=== PATIENT | male | born 1960 | race Caucasian/White ===

== ENCOUNTER 2021-05-18 13:04 | Inpatient (IN) | payer OTHER, SELFPAY ==
--- NOTE | 2021-05-18 | ECG_ITS ---
Test Reason : MEDICAL CLEARANCE Blood Pressure : / mmHG Vent. Rate : 088 BPM Atrial Rate : 088 BPM P-R Int : 180 ms QRS Dur : 134 ms QT Int : 406 ms P-R-T Axes : 038 123 013 degrees QTc Int : 491 ms Normal sinus rhythm Right bundle branch block Nonspecific T wave abnormality Abnormal ECG No previous ECGs available Referred By: Sal Barton Electronically Signed By:MARCEL AVILEZ MD
--- NOTE | 2021-05-18 13:16 | ED.PSYCH ---
HPI - Psych General Chief Complaint: Psychiatric Symptoms Stated Complaint: PSYCH EVAL,SI,V&D FROM DETOXING Time Seen by Provider: 05/18/21 13:16 Source: patient and EMS Mode of arrival: EMS Limitations: no limitations History of Present Illness MD complaint: suicidal ideation, feels depressed and substance abuse Onset (ago): week(s) Duration: getting worse History of same: Yes Relieving factors: none Exacerbating factors: none Context: other (heavy ETOH drinking) Associated psychiatric symptoms: depression Associated symptoms: other (has had loose stools) Treatments prior to arrival: none Related Data Home Medications Medication Instructions Recorded Confirmed hydroxyzine pamoate 50 mg capsule 250 mg PO BEDTIME 05/18/21 05/18/21 lisinopril 20 mg tablet 1 tab PO DAILY 05/18/21 05/18/21 melatonin 10 mg tablet 10 mg PO BEDTIME PRN 05/18/21 05/18/21 multivitamin 1 tab PO DAILY 05/18/21 05/18/21 Allergies Allergy/AdvReac Type Severity Reaction Status Date / Time No Known Allergies Allergy Unverified 04/16/20 14:43 Review of Systems Review of Systems: Constitutional : No Fever, No Chills ENT/Mouth : No Ear Pain, No Nasal Congestion, No sore throat Eyes: No Eye Pain, No Swelling, No Redness Cardiovascular : No Chest Pain, No SOB Respiratory : No Cough, No Sputum, No Dyspnea Gastrointestinal : No Nausea, No Vomiting, pos Diarrhea, No Hematochezia, No Melena Genitourinary : No Dysuria, No Urinary Frequency, No Hematuria Musculoskeletal : No Myalgias Skin : No Skin Lesions, No rash Neuro : No Weakness, No Numbness, No Paresthesias, No Dizziness, No Headache Psych : positive Anxiety, positive Depression, positive SI no HI Heme/Lymph: No Lymphadenopathy Endocrine : No Polyuria, No Polydipsia All other systems reviewed and are negative [facility] Past Medical History Attestation statement: The following information was validated with the patient. Medical History (Updated 05/18/21 @ 15:24 by Olimpia Sylvester DO) Alcoholism Depression Social History Social History (Updated 05/18/21 @ 13:50 by Olimpia Sylvester DO) Alcohol intake: current Patient Tobacco Use Status: Tobacco use Unknown Advance Directives: No Advance Directives Information Provided: Yes Physical Exam Vital Signs: Vital Signs: Last Vital Signs Temp 98.2 F 05/18/21 13:43 Pulse 91 05/18/21 14:57 Resp 16 05/18/21 13:43 BP 109/72 05/18/21 14:57 Pulse Ox 97 05/18/21 14:57 Body Mass Index 27.6 Appearance: Alert. Oriented X3. No acute distress. Eyes: Pupils equal, round and reactive to light. ENT: Pharynx normal. Neck: Normal inspection. Neck supple. CVS: Normal heart rate and rhythm. Pulses normal. Respiratory: No respiratory distress. Breath sounds normal. Abdomen: Soft and nontender. Skin: Skin warm and dry. Normal skin color. Normal skin turgor. Extremities: No lower extremity edema. No calf ttp Neuro: Oriented X 3. No motor deficit. No sensory deficit. CN 2-12 intact Psych: pos SI, calm and cooperative Course Course Course Narrative: belly is benign doubt pancreatitis Patient placed in physician observation at 322pm. The indication for observation is that the patient needs more time to be assessed by CARE team. At this time the patient is well developed well nourished, lungs clear, CV RRR, abd nontender, neuro is intact. signed out pending CARE team reccs MDM - Psych MDM Narrative Medical decision making narrative: 61 yo male with recent ETOH abuse and now with depression and SI at this time will need labs, PO supportive medications, his abdominal exam is benign - BHn consult Lab Data Result diagrams: 05/18/21 14:05 05/18/21 14:05 Labs: Lab Results 05/18/21 05/18/21 05/18/21 Range/Units 13:33 14:05 14:05 WBC 7.0 (4.8-10.8) X10*3/uL RBC 4.11 L (4.60-5.80) X10*6/uL Hgb 13.0 L (14.0-18.0) g/dl Hct 36.9 L (42-52) % MCV 89.8 (80-98) fL MCH 31.6 (27.0-33.0) pg MCHC 35.2 (31.0-36.0) g/dl RDW 13.2 (11.0-16.0) % Plt Count 151 L (160-400) X10*3/uL MPV 10.0 (9.4-12.4) fL Immature Gran % (Auto) 0.6 H (0.0-0.4) % Neut % (Auto) 57.6 (45-73) % Lymph % (Auto) 24.2 (20-40) % [place] % (Auto) 15.4 H (2-11) % Eos % (Auto) 1.8 (0-4) % Baso % (Auto) 0.4 (0-2) % Lymph # (Auto) 1.7 (1.2-4.9) X10*3/uL [place] # (Auto) 1.1 (0.1-1.2) X10*3/uL Eos # (Auto) 0.1 (0.0-0.4) X10*3/uL Baso # (Auto) 0.0 (0.0-0.2) X10*3/uL Abs Immat Gran (auto) 0.04 H (0.00-0.03) X10*3/uL Absolute Neuts (auto) 4.1 (2.0-8.3) X10*3/uL Absolute Nucleated RBC 0.000 (0.0-0.012) X10*3/uL Nucleated RBC % (auto) 0.0 (0.0-0.2) /100WBC Smear Tech's Comments Not Reportable Sodium 137 (135-145) mmol/L Potassium 3.4 (3.3-5.1) mmol/L Chloride 98 (96-108) mmol/L Carbon Dioxide 27 (22-29) mmol/L Anion Gap 15 (12-20) BUN 12 (9-16) mg/dL Creatinine 0.94 (0.5-1.4) mg/dL Estim Creat Clear Calc 90.3 Estimated GFR > 60 Random Glucose 152 H (60-115) mg/dL Calcium 9.4 (8.4-10.2) mg/dL Magnesium 1.5 L (1.6-2.6) mg/dL Total Bilirubin 1.2 H (0.0-1.0) mg/dL Direct Bilirubin 0.7 H (0.0-0.5) mg/dL AST 55 H (5-37) U/L ALT 37 (0-40) U/L Alkaline Phosphatase 85 (39-117) U/L Total Protein 7.0 (6.5-8.0) g/dL Albumin 4.2 (3.5-5.0) g/dL Lipase 128 H (8-78) U/L Urine Opiates Screen Not Detected (Not Detect) Urine Fentanyl Screen Not Detected (Not Detect) Ur Barbiturates Screen Not Detected (Not Detect) Ur Phencyclidine Scrn Not Detected (Not Detect) Ur Amphetamines Screen Not Detected (Not Detect) U Benzodiazepines Scrn Not Detected (Not Detect) Urine Cocaine Screen Not Detected (Not Detect) U Marijuana (THC) Screen POSITIVE H (Not Detect) Ethyl Alcohol mg/dL COVID-19 ([facility]) (Negative) COVID-19 Clin Com 05/18/21 05/18/21 Range/Units 14:05 14:05 WBC (4.8-10.8) X10*3/uL RBC (4.60-5.80) X10*6/uL Hgb (14.0-18.0) g/dl Hct (42-52) % MCV (80-98) fL MCH (27.0-33.0) pg MCHC (31.0-36.0) g/dl RDW (11.0-16.0) % Plt Count (160-400) X10*3/uL MPV (9.4-12.4) fL Immature Gran % (Auto) (0.0-0.4) % Neut % (Auto) (45-73) % Lymph % (Auto) (20-40) % [place] % (Auto) (2-11) % Eos % (Auto) (0-4) % Baso % (Auto) (0-2) % Lymph # (Auto) (1.2-4.9) X10*3/uL [place] # (Auto) (0.1-1.2) X10*3/uL Eos # (Auto) (0.0-0.4) X10*3/uL Baso # (Auto) (0.0-0.2) X10*3/uL Abs Immat Gran (auto) (0.00-0.03) X10*3/uL Absolute Neuts (auto) (2.0-8.3) X10*3/uL Absolute Nucleated RBC (0.0-0.012) X10*3/uL Nucleated RBC % (auto) (0.0-0.2) /100WBC Smear Tech's Comments Sodium (135-145) mmol/L Potassium (3.3-5.1) mmol/L Chloride (96-108) mmol/L Carbon Dioxide (22-29) mmol/L Anion Gap (12-20) BUN (9-16) mg/dL Creatinine (0.5-1.4) mg/dL Estim Creat Clear Calc Estimated GFR Random Glucose (60-115) mg/dL Calcium (8.4-10.2) mg/dL Magnesium (1.6-2.6) mg/dL Total Bilirubin (0.0-1.0) mg/dL Direct Bilirubin (0.0-0.5) mg/dL AST (5-37) U/L ALT (0-40) U/L Alkaline Phosphatase (39-117) U/L Total Protein (6.5-8.0) g/dL Albumin (3.5-5.0) g/dL Lipase (8-78) U/L Urine Opiates Screen (Not Detect) Urine Fentanyl Screen (Not Detect) Ur Barbiturates Screen (Not Detect) Ur Phencyclidine Scrn (Not Detect) Ur Amphetamines Screen (Not Detect) U Benzodiazepines Scrn (Not Detect) Urine Cocaine Screen (Not Detect) U Marijuana (THC) Screen (Not Detect) Ethyl Alcohol < 10 mg/dL COVID-19 ([facility]) Negative (Negative) COVID-19 Clin Com See Note Discharge Plan Discharge Clinical Impression: Alcohol abuse, Hypomagnesemia Prescriptions: No Action multivitamin Tablet 1 tab PO DAILY RF: 0 lisinopril 20 mg tablet 1 tab PO DAILY RF: 0 hydroxyzine pamoate 50 mg capsule 250 mg PO BEDTIME RF: 0 melatonin 10 mg Tablet 10 mg PO BEDTIME PRN (Reason: Insomnia) RF: 0
[2021-05-18 13:43] VITALS: BP 137/90; PULSE 118; RESP 16; TEMP 36.8; O2SAT 97; BMI 27.6
[2021-05-18] MEDS: LORazepam 1 MG TABLET 2 MG PO (13:53)
[2021-05-18] MEDS: Loperamide HCl 2 MG CAPSULE PO (13:57)
--- NOTE | 2021-05-18 14:00 | PHA.MEDREC ---
Pharmacy Consult ? Medication Reconciliation Pharmacy has completed the medication reconciliation. Patient has been taking 5 tablet of vistiral every night for sleep. He beleives it does not work because his mind continue to run. He is hoping to have some medication adjusted for sleep. Leigh Diehl, PharmD
[2021-05-18 14:12] LABS: MANUAL DIFF FLAG SCAN; PLT CLUMP 1; Red Cell Distribution Width 13.2 % (11.0-16.0); SCAN SMEAR FLAG 1
[2021-05-18 14:14] LABS: Amphetamine Screen Urine Not Detected (Not Detect); Barbiturates, Urine Not Detected (Not Detect); Benzodiazepines Screen Urine Not Detected (Not Detect); Cannabinoid Screen Urine POSITIVE (Not Detect); Cocaine Screen Urine Not Detected (Not Detect); Fentanyl, urine Not Detected (Not Detect); Opiate Screen Urine Not Detected (Not Detect); Phencyclidine Screen Urine Not Detected (Not Detect)
[2021-05-18 14:14] LABS: Basophils Percent Auto 0.4 % (0-2); Eosinophils Absolute Auto 0.1 X10*3/uL (0.0-0.4); Eosinophils Percent Auto 1.8 % (0-4); Hematocrit 36.9 % (42-52); Imm Gran Abs Auto 0.04 X10*3/uL (0.00-0.03); Imm Gran Pct Auto 0.6 % (0.0-0.4); Lymphocytes Absolute Auto 1.7 X10*3/uL (1.2-4.9); Lymphocytes Percent Auto 24.2 % (20-40); Mean Corpuscular HGB Conc 35.2 g/dl (31.0-36.0); Mean Corpuscular Hemoglobin 31.6 pg (27.0-33.0); Mean Corpuscular Volume 89.8 fL (80-98); Monocytes Absolute Auto 1.1 X10*3/uL (0.1-1.2); Monocytes Percent Auto 15.4 % (2-11); Neutrophils Absolute Auto 4.1 X10*3/uL (2.0-8.3); Neutrophils Percent Auto 57.6 % (45-73); Platelet Count 151 X10*3/uL (160-400); Red Blood Count 4.11 X10*6/uL (4.60-5.80)
[2021-05-18 14:25] LABS: Ethanol < 10 mg/dL
[2021-05-18 14:28] LABS: Alanine Aminotransferase 37 U/L (0-40); Albumin Level 4.2 g/dL (3.5-5.0); Alkaline Phosphatase 85 U/L (39-117); Anion Gap 15 (12-20); Aspartate Amino Transferase 55 U/L (5-37); Bilirubin Direct 0.7 mg/dL (0.0-0.5); Bilirubin Total 1.2 mg/dL (0.0-1.0); Blood Urea Nitrogen 12 mg/dL (9-16); Calcium 9.4 mg/dL (8.4-10.2); Carbon Dioxide 27 mmol/L (22-29); Chloride 98 mmol/L (96-108); Creatinine Clr Calc Pharmacy 90.3; Estimated Glomerular Filt Rate > 60; Glucose Random 152 mg/dL (60-115); Lipase 128 U/L (8-78); Magnesium 1.5 mg/dL (1.6-2.6); Potassium 3.4 mmol/L (3.3-5.1); Sodium 137 mmol/L (135-145)
[2021-05-18 14:36] LABS: COVID-19 Test Negative (Negative)
[2021-05-18] MEDS: Magnesium Oxide 400 MG TABLET PO (14:48)
[2021-05-18 14:57] VITALS: BP 109/72; PULSE 91; O2SAT 97
[2021-05-18] MEDS: LORazepam 1 MG TABLET PO (16:16)
--- NOTE | 2021-05-18 17:22 | PM.PSYCN ---
History of Present Illness Date of Service: 05/18/21 Chief Complaint: PSYCH EVAL,SI,V&D FROM DETOXING Reason for Consult: disposition Requesting physician: Olimpia Sylvester Discussed with referring provider: Yes Sources of Information: patient interviewed, chart reviewed and crisis/core team assessment reviewed HPI Narrative: Pt is a 61 y.o. Male who carries a dx of MDD, recurrent and alcohol use disorder in early remission. He reports he has abstained from drinking x 1 week but had relapsed on alcohol around his birthday. Says he left his sober living residence due to feeling demoralized by the conditions, ?four people in a small room,? no place to store his things, not well maintained, ?way below expectations.? Had no where to go, decided to ?drink my birthday away.? He has been staying in hotels and was drinking throughout the day. Says he would ?always make sure there was a bottle first thing in the morning? due to feeling ?extremely depressed? and would consume 3-4 vodka and grapefruit juice drinks ?until i started to feel better.? Then at night he would ?drink and sleep and drink and sleep, and just dose off.? During this recent relapse, he was not caring for himself, said he ate one pizza and drank some broth but not much else. Currently denies withdrawal sx, had self detoxed and said he was drinking ?a lot of gatorade.? Sleep is poor, feels restless, ?I cant sleep, my mind is all over the place.? Sleep has been worse x one month, tries to nap in the day but is unable to due to anxiety, has been sitting in his hotel room drinking and watching tv. Says he feels ?tired? and has ?no energy.? He endorses sx of hopeless, ?I had a really good deal and I lost it,? perseverating on his losses and says watching certain commercials will ?bring back certain things, it eats me up.? 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 Drinking behavior has been worsening x 4 yrs. Last sought help in October 2020 and was admitted to IOP, PHP, and EATs programs. Has been to AA. No hx of IPLOC or crisis evals for psych sx. Currently endorses SI, ?its where my mind wanders, it would be so much easier if I just checked out,? has never had these thoughts before and he is ?scared,? does not feels safe going back home. Has plan to ?burry a bottle of sleeping pills and [employer].? Has financial stress. Past Psychiatric History: Past med trials: -sertraline, naltrexone (says it helped) Medical Evaluation Reviewed: Yes [facility] Medical History (Updated 05/18/21 @ 17:25 by Linda Gar NP) Alcoholism Depression Social History: SH: -Was at sober living facility but left before day weekend, then was staying in hotels. Most recently has been staying at his parent?s house but currently homeless. Diagnostics Vital Signs (24Hr): Vital Signs - 24 hr 05/18/21 13:43 05/18/21 14:57 Temperature 98.2 F Pulse Rate 118 H 91 Respiratory Rate 16 Blood Pressure 137/90 H 109/72 Pulse Oximetry 97 97 Body Mass Index 27.6 Labs Results: 05/18/21 14:05 05/18/21 14:05 Labs: Laboratory Results - last 48 hr 05/18/21 05/18/21 05/18/21 13:33 14:05 14:05 WBC 7.0 RBC 4.11 L Hgb 13.0 L Hct 36.9 L MCV 89.8 MCH 31.6 MCHC 35.2 RDW 13.2 Plt Count 151 L MPV 10.0 Immature Gran % (Auto) 0.6 H Neut % (Auto) 57.6 Lymph % (Auto) 24.2 [place] % (Auto) 15.4 H Eos % (Auto) 1.8 Baso % (Auto) 0.4 Lymph # (Auto) 1.7 [place] # (Auto) 1.1 Eos # (Auto) 0.1 Baso # (Auto) 0.0 Abs Immat Gran (auto) 0.04 H Absolute Neuts (auto) 4.1 Absolute Nucleated RBC 0.000 Nucleated RBC % (auto) 0.0 Smear Tech's Comments Not Reportable Sodium 137 Potassium 3.4 Chloride 98 Carbon Dioxide 27 Anion Gap 15 BUN 12 Creatinine 0.94 Estim Creat Clear Calc 90.3 Estimated GFR > 60 Random Glucose 152 H Calcium 9.4 Magnesium 1.5 L Total Bilirubin 1.2 H Direct Bilirubin 0.7 H AST 55 H ALT 37 Alkaline Phosphatase 85 Total Protein 7.0 Albumin 4.2 Lipase 128 H Urine Opiates Screen Not Detected Urine Fentanyl Screen Not Detected Ur Barbiturates Screen Not Detected Ur Phencyclidine Scrn Not Detected Ur Amphetamines Screen Not Detected U Benzodiazepines Scrn Not Detected Urine Cocaine Screen Not Detected U Marijuana (THC) Screen POSITIVE H Ethyl Alcohol COVID-19 ([facility]) COVID-19 Clin Com 05/18/21 05/18/21 14:05 14:05 WBC RBC Hgb Hct MCV MCH MCHC RDW Plt Count MPV Immature Gran % (Auto) Neut % (Auto) Lymph % (Auto) [place] % (Auto) Eos % (Auto) Baso % (Auto) Lymph # (Auto) [place] # (Auto) Eos # (Auto) Baso # (Auto) Abs Immat Gran (auto) Absolute Neuts (auto) Absolute Nucleated RBC Nucleated RBC % (auto) Smear Tech's Comments Sodium Potassium Chloride Carbon Dioxide Anion Gap BUN Creatinine Estim Creat Clear Calc Estimated GFR Random Glucose Calcium Magnesium Total Bilirubin Direct Bilirubin AST ALT Alkaline Phosphatase Total Protein Albumin Lipase Urine Opiates Screen Urine Fentanyl Screen Ur Barbiturates Screen Ur Phencyclidine Scrn Ur Amphetamines Screen U Benzodiazepines Scrn Urine Cocaine Screen U Marijuana (THC) Screen Ethyl Alcohol < 10 COVID-19 ([facility]) Negative COVID-19 Clin Com See Note Mental Status Exam Mental Status Exam Narrative: A&O. In hospital attire, somewhat unkempt, normal body habitus. Good eye contact, attentive. No Tics or Tremors. No abnormal involuntary movements. Calm, cooperative, engaged. Non-pressured speech, spontaneous with regular rate and rhythm, normal volume and prosody. No prolonged speech latency or dysarthria. Mood is ?depressed,? affect is dysphoric. Endorses SI with plan, currently denies intent but does not feel safe to return home. Denies SIB/HI upon inquiry. Denies A/VH or delusional thought content. Thoughts are coherent, organized. No known cognitive or memory impairment. Insight/ Judgment fair and adequate. Medications Medications Current Medications Pharmacy Consult (Consult Rx Perform Med Rec) 1 each MISCELLANE ONCE PRN PRN Reason: Consult order Allergies Allergies Allergy/AdvReac Type Severity Reaction Status Date / Time No Known Allergies Allergy Unverified 04/16/20 14:43 Assessment & Plan Assessment & Plan (1) MDD (major depressive disorder), recurrent episode, moderate: Status: Acute Code(s): F33.1 - Major depressive disorder, recurrent, moderate (2) Alcohol use disorder, severe, in early remission: Status: Acute Code(s): F10.21 - Alcohol dependence, in remission Assessment and Plan: Pt is a 61 y.o. Male who carries a dx of MDD, recurrent and alcohol use disorder in early remission. Currently presenting with sx of depression and decompensation in self care in context of recent relapse on alcohol. Sx include poor sleep, not eating, increased anxiety, SI with plan to OD on pills and drink alcohol, low energy, and feelings of hopelessness. Plan: -Continue monitoring medically. Patient is currently medically cleared. -Consult requested for disposition -Patient cannot leave AGAINST MEDICAL ADVICE. -Care Team evaluation for bed search. initial treatments ordered collateral history needed I spent minutes with the patient and/or on the patient floor today, greater than?50% of which was spent counseling/coordinating care.
[2021-05-18] MEDS: traZODone HCL 50 MG TABLET PO (22:39)
--- NOTE | 2021-05-18 23:36 | PC.ADMIT ---
Pt is a 61 year old male who came [place] [facility] [place] [place] SI and detoxing from alcohol. Pt reports that he drinks 1.75 pints of vodka every 2 days. States that he had diarrhea this AM and no longer has tremors, emesis, sensitivity to light. Reports that he feels safe on the unit but if he was not here that it would be different. His plan at home was to take a bottle of pills and drink a pint of vodka to go to sleep. Expresses he wants to receive and participate with his care- future oriented. Hx of substance use treatment. No hx of IPLOC. Medications ordered and obtained by MD squadron worker. Placed on 15 minute checks. CV signed.
[2021-05-19 06:00] VITALS: BP 135/81; PULSE 100; RESP 16; TEMP 36.5; O2SAT 98
[2021-05-19 08:49] VITALS: BP 131/76; PULSE 118
[2021-05-19] MEDS: lisinopriL 20 MG TABLET PO (08:49)
[2021-05-19] MEDS: Multivitamin TABLET 1 TAB PO (08:50)
[2021-05-19 08:52] LABS: Alanine Aminotransferase 58 U/L (0-40); Albumin Level 4.5 g/dL (3.5-5.0); Alkaline Phosphatase 85 U/L (39-117); Anion Gap 16 (12-20); Aspartate Amino Transferase 83 U/L (5-37); Bilirubin Total 1.4 mg/dL (0.0-1.0); Blood Urea Nitrogen 11 mg/dL (9-16); Calcium 9.7 mg/dL (8.4-10.2); Carbon Dioxide 27 mmol/L (22-29); Chloride 99 mmol/L (96-108); Cholesterol 150 mg/dL; Creatinine Clr Calc Pharmacy 97.5; Estimated Glomerular Filt Rate > 60; Glucose Fasting 91 mg/dL (60-99); HDL Cholesterol 65 mg/dL; LDL Cholesterol Calculated 64 mg/dl; Potassium 3.5 mmol/L (3.3-5.1); Sodium 138 mmol/L (135-145); Total Protein 7.5 g/dL (6.5-8.0); Triglycerides 107 mg/dL
[2021-05-19 08:53] LABS: Estimated Average Glucose 94 mg/dL; Hemoglobin A1c % 4.9 %
--- NOTE | 2021-05-19 10:24 | HO.PSYADMNOT ---
HPI Date of Service: 05/19/21 Chief Complaint: SI Sources of Information: patient interviewed, chart reviewed and crisis/core team assessment reviewed HPI Subjective Notes: [place] Warning and Conditional Voluntary Narrative: pt is a 61 yo male w/ hx of depression and decades of severe alcohol dependence. Pt presents for MDD with recent SI, having detoxed at home. Pt reports sober for about 5 months, 4 of which in rehab. He stopped taking Zoloft feeling in a good mood (though it was only at 25mg) He moved to sober living house in March that was poorly run and in dilapidated housing. Pt grew depressed and left sober house, went to hotel room and started drinking. Pt's depression worsened; he started feeling that life wasn't worth living and had a vague plan to overdose on pills and alcohol. He did not want to and finally answered his son's repeated phone calls; he went to his parents house and detoxed w/out treatment and then presented for ongoing depression. Si remains resolved; pt denies other drug use; denies hx of manic symptoms; denies hx of trauma. Reports chronic anxiety and worries about many things; he mostly notices at night saying he's drunk most of the day. Pt stumbling a little and presents with ataxia which he says started around detox. EOMI; no nystagmus no confusion present Past Psychiatric History: Past med trials: -sertraline, naltrexone (says it helped) Medical Evaluation Reviewed: Yes [facility] Medical History (Updated 05/18/21 @ 21:10 by Ginna Gay NP) Alcoholism Depression Family History: mother anxiety Social History: SH: -Was at sober living facility but left before day weekend, then was staying in hotels. Most recently has been staying at his parent?s house but currently homeless. Substance History: alcohol dependence for decades; no other drug abuse Trauma History: denies Diagnostics Vital Signs (24Hr): Vital Signs - 24 hr 05/18/21 13:43 05/18/21 14:57 05/19/21 06:00 Temperature 98.2 F 97.7 F Pulse Rate 118 H 91 100 Respiratory Rate 16 16 Blood Pressure 137/90 H 109/72 135/81 Pulse Oximetry 97 97 98 05/19/21 08:49 Temperature Pulse Rate 118 H Respiratory Rate Blood Pressure 131/76 Pulse Oximetry Body Mass Index 27.6 Labs Results: 05/18/21 14:05 05/19/21 07:54 Labs: Laboratory Results - last 48 hr 05/18/21 05/18/21 05/18/21 13:33 14:05 14:05 WBC 7.0 RBC 4.11 L Hgb 13.0 L Hct 36.9 L MCV 89.8 MCH 31.6 MCHC 35.2 RDW 13.2 Plt Count 151 L MPV 10.0 Immature Gran % (Auto) 0.6 H Neut % (Auto) 57.6 Lymph % (Auto) 24.2 Brule % (Auto) 15.4 H Eos % (Auto) 1.8 Baso % (Auto) 0.4 Lymph # (Auto) 1.7 Brule # (Auto) 1.1 Eos # (Auto) 0.1 Baso # (Auto) 0.0 Abs Immat Gran (auto) 0.04 H Absolute Neuts (auto) 4.1 Absolute Nucleated RBC 0.000 Nucleated RBC % (auto) 0.0 Smear Tech's Comments Not Reportable Sodium 137 Potassium 3.4 Chloride 98 Carbon Dioxide 27 Anion Gap 15 BUN 12 Creatinine 0.94 Estim Creat Clear Calc 90.3 Estimated GFR > 60 Random Glucose 152 H Fasting Glucose Estimat Average Glucose Hemoglobin A1c % Calcium 9.4 Magnesium 1.5 L Total Bilirubin 1.2 H Direct Bilirubin 0.7 H AST 55 H ALT 37 Alkaline Phosphatase 85 Total Protein 7.0 Albumin 4.2 Triglycerides Cholesterol LDL Cholesterol, Calc HDL Cholesterol Lipase 128 H Urine Opiates Screen Not Detected Urine Fentanyl Screen Not Detected Ur Barbiturates Screen Not Detected Ur Phencyclidine Scrn Not Detected Ur Amphetamines Screen Not Detected U Benzodiazepines Scrn Not Detected Urine Cocaine Screen Not Detected U Marijuana (THC) Screen POSITIVE H Ethyl Alcohol COVID-19 ([facility]) COVID-19 Clin Com 05/18/21 05/18/21 05/19/21 14:05 14:05 07:54 WBC RBC Hgb Hct MCV MCH MCHC RDW Plt Count MPV Immature Gran % (Auto) Neut % (Auto) Lymph % (Auto) Brule % (Auto) Eos % (Auto) Baso % (Auto) Lymph # (Auto) Brule # (Auto) Eos # (Auto) Baso # (Auto) Abs Immat Gran (auto) Absolute Neuts (auto) Absolute Nucleated RBC Nucleated RBC % (auto) Smear Tech's Comments Sodium 138 Potassium 3.5 Chloride 99 Carbon Dioxide 27 Anion Gap 16 BUN 11 Creatinine 0.87 Estim Creat Clear Calc 97.5 Estimated GFR > 60 Random Glucose Fasting Glucose 91 Estimat Average Glucose Hemoglobin A1c % Calcium 9.7 Magnesium Total Bilirubin 1.4 H Direct Bilirubin AST 83 H ALT 58 H Alkaline Phosphatase 85 Total Protein 7.5 Albumin 4.5 Triglycerides 107 Cholesterol 150 LDL Cholesterol, Calc 64 HDL Cholesterol 65 Lipase Urine Opiates Screen Urine Fentanyl Screen Ur Barbiturates Screen Ur Phencyclidine Scrn Ur Amphetamines Screen U Benzodiazepines Scrn Urine Cocaine Screen U Marijuana (THC) Screen Ethyl Alcohol < 10 COVID-19 ([facility]) Negative COVID-19 Clin Com See Note 05/19/21 07:54 WBC RBC Hgb Hct MCV MCH MCHC RDW Plt Count MPV Immature Gran % (Auto) Neut % (Auto) Lymph % (Auto) Brule % (Auto) Eos % (Auto) Baso % (Auto) Lymph # (Auto) Brule # (Auto) Eos # (Auto) Baso # (Auto) Abs Immat Gran (auto) Absolute Neuts (auto) Absolute Nucleated RBC Nucleated RBC % (auto) Smear Tech's Comments Sodium Potassium Chloride Carbon Dioxide Anion Gap BUN Creatinine Estim Creat Clear Calc Estimated GFR Random Glucose Fasting Glucose Estimat Average Glucose 94 Hemoglobin A1c % 4.9 Calcium Magnesium Total Bilirubin Direct Bilirubin AST ALT Alkaline Phosphatase Total Protein Albumin Triglycerides Cholesterol LDL Cholesterol, Calc HDL Cholesterol Lipase Urine Opiates Screen Urine Fentanyl Screen Ur Barbiturates Screen Ur Phencyclidine Scrn Ur Amphetamines Screen U Benzodiazepines Scrn Urine Cocaine Screen U Marijuana (THC) Screen Ethyl Alcohol COVID-19 ([facility]) COVID-19 Clin Com Meds/Allergies Meds Home Medications Al Hydroxide/Mg Hydroxide (Magnesium Hydrox/Alum Hydrox 30 Ml Oral.Susp) 30 ml PO Q6H PRN PRN Reason: Heartburn/Nausea Folic Acid (Folic Acid 1 Mg Tablet) 1 mg PO DAILY DAWN Hydroxyzine HCl (Hydroxyzine Hcl 25 Mg Tablet) 25 mg PO BEDTIME PRN PRN Reason: Anxiety Ibuprofen (Ibuprofen 600 Mg Tablet) 600 mg PO Q8H PRN PRN Reason: Pain, Mild (Pain Scale 1-3) Lisinopril (Lisinopril 20 Mg Tablet) 20 mg PO DAILY DAWN; Protocol Last Admin: 05/19/21 08:49 Dose: 20 mg Documented by: Lorazepam (Lorazepam 1 Mg Tablet) 1 mg PO Q2H PRN PRN Reason: mild to mod alcohol w/drawal Magnesium Hydroxide (Milk Of Magnesia 30 Ml Oral.Susp) 30 ml PO DAILY PRN PRN Reason: Constipation Melatonin (Melatonin 3 Mg Tablet) 9 mg PO BEDTIME PRN PRN Reason: Insomnia Multivitamins/Vitamin C (Multivitamin Tablet) 1 tab PO DAILY [facility] Last Admin: 05/19/21 08:50 Dose: 1 tab Documented by: Multivitamins/Vitamin C (Multivitamin Tablet) 1 tab PO DAILY [facility] Naltrexone HCl (Naltrexone Hcl 50 Mg Tablet) 25 mg PO DAILY [facility] Pharmacy Consult (Consult Rx Perform Med Rec) 1 each MISCELLANE ONCE PRN PRN Reason: Consult order Sertraline HCl (Sertraline Hcl 50 Mg Tablet) 50 mg PO DAILY [facility] Thiamine HCl (Thiamine Hcl 200 Mg/2 Ml Vial) 250 mg IM DAILY [facility] Stop: 05/23/21 23:59 Last Admin: 05/19/21 20:36 Dose: 250 mg Documented by: Thiamine HCl (Thiamine Hcl 100 Mg Tablet) 100 mg PO DAILY [facility] Trazodone HCl (Trazodone Hcl 50 Mg Tablet) 50 mg PO BEDTIME PRN PRN Reason: Insomnia Last Admin: 05/18/21 22:39 Dose: 50 mg Documented by: Allergies Allergies Allergy/AdvReac Type Severity Reaction Status Date / Time No Known Allergies Allergy Unverified 04/16/20 14:43 Mental Status Exam Mental Status Exam Narrative: Pt is alert and oriented; behavior is cooperative; dressed in casual attire with unkempt hair, disheveled; mood is described as depressed and affect downcast; eye contact appropriate; Speech is normal rate, volume and prosody and not pressured; psychomotor retardation present; thought process is goal directed but also circumstantial. Thought content is on dealing with depression, regrets, shame of relapse; also on tx and pertinent to relevant topics and without any delusional content, paranoid ideations or grandiosity; denies any SI/HI. There is no evidence of perceptual disturbance. Patients insight and judgment appear intact. Assessment & Plan Assessment & Plan (1) MDD (major depressive disorder), recurrent episode, moderate: Status: Acute Code(s): F33.1 - Major depressive disorder, recurrent, moderate (2) Alcohol use disorder, severe, in early remission: Status: Acute Code(s): F10.21 - Alcohol dependence, in remission Assessment and Plan: IMPRESSION: pt is a 61 yo male w/ hx of depression and decades of severe alcohol dependence. Pt presents for MDD with recent SI, having detoxed at home. Pt depressed; will need to r/o NERY. -pt agrees to restarting Zoloft since it was tolerated; he understands he was never at therapeutic dose and agrees to titrate quickly -pt has ataxia that he says started while detoxing; EOMI and no nystagmus or confusion/memory loss; does not meet criteria for Wernikies but also reports he was hardly eating while abusing alcohol; given ataxia will treat with Thiamine with 250mg IM for a 3-5 days (discussed with Dr. Quick who agrees this is appropriate and that pt does not need IV or higher dosing). PLAN: cv q15min checks Thiamine 250mg IM for 4 days; then 100mg PO Folic acid 1mg daily MultiVitamine Restart Zoloft and titrate to 75mg or higher restart Naltrexone (commercial underwriter reviewed risks/side-effects of med current med regimen) pt wants therapy and after care. Reason for continued inpatient stay Substantial Risk for: rapid decompensation and med/psych decompensation
[2021-05-19] MEDS: LORazepam 1 MG TABLET PO (10:42)
[2021-05-19] MEDS: Gabapentin 300 MG CAPSULE PO (10:42)
[2021-05-19] MEDS: Thiamine HCL 100 MG TABLET 200 MG PO (13:27)
[2021-05-19] MEDS: Folic Acid 1 MG TABLET PO (13:27)
[2021-05-19] MEDS: Sertraline HCL 25 MG TABLET PO (14:04)
[2021-05-19] MEDS: Thiamine HCL 200 MG/2 ML VIAL 250 MG IM (20:36)
[2021-05-19 21:28] VITALS: BP 99/66; PULSE 102; TEMP 36.8; O2SAT 99
[2021-05-20 06:00] VITALS: BP 130/71; PULSE 95; RESP 16; TEMP 36.8; O2SAT 98
[2021-05-20] MEDS: Multivitamin TABLET 1 TAB PO ×2 (09:48→09:56)
[2021-05-20 09:49] VITALS: BP 124/79; PULSE 102
[2021-05-20] MEDS: Naltrexone HCl 50 MG TABLET 25 MG PO (09:49)
[2021-05-20] MEDS: Folic Acid 1 MG TABLET PO (09:49)
[2021-05-20] MEDS: lisinopriL 20 MG TABLET PO (09:49)
[2021-05-20] MEDS: Sertraline HCL 50 MG TABLET PO (09:50)
[2021-05-20] MEDS: Thiamine HCL 200 MG/2 ML VIAL 250 MG IM (11:24)
--- NOTE | 2021-05-20 15:25 | HO.PSYCHPN ---
Subjective Subjective Date of Service: 05/20/21 Reason For Visit: SI Interim History: Patient reports feeling better. No SI/HI, future oriented and optimistic about staying sober. 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 Patient reports anxiety about bills that are mounting and how he will manage to get back to work. However he remains focused on taking care of his mental health and his addiction as his top priority. Patient reports no side effects from naltrexone or Zoloft. He agrees to titrating Zoloft to 75 mg. Patient reports he slept well last night. Of note he is walking with improved gait today. Mental Status Exam Mental Status Exam Narrative: Pt is alert and oriented; behavior is cooperative; dressed in casual attire with unkempt hair and bay, but with adequate hygiene; mood is described as better and affect congruent, brighter; eye contact appropriate; Speech is normal rate, volume and prosody and not pressured; psychomotor retardation present; thought process is goal directed but also circumstantial. Thought content is on dealing with overcoming addiction, depression, regrets; also on tx and pertinent to relevant topics and without any delusional content, paranoid ideations or grandiosity; denies any SI/HI. There is no evidence of perceptual disturbance. Patients insight and judgment appear intact. Diagnostics Vital Signs (24Hr): Vital Signs - 24 hr 05/19/21 21:28 05/20/21 06:00 05/20/21 09:49 Temperature 98.2 F 98.3 F Pulse Rate 102 H 95 102 H Respiratory Rate 16 Blood Pressure 99/66 130/71 124/79 Pulse Oximetry 99 98 Body Mass Index 27.6 Labs Results: 05/18/21 14:05 05/19/21 07:54 Labs: Laboratory Results - last 48 hr 05/19/21 05/19/21 07:54 07:54 Sodium 138 Potassium 3.5 Chloride 99 Carbon Dioxide 27 Anion Gap 16 BUN 11 Creatinine 0.87 Estim Creat Clear Calc 97.5 Estimated GFR > 60 Fasting Glucose 91 Estimat Average Glucose 94 Hemoglobin A1c % 4.9 Calcium 9.7 Total Bilirubin 1.4 H AST 83 H ALT 58 H Alkaline Phosphatase 85 Total Protein 7.5 Albumin 4.5 Triglycerides 107 Cholesterol 150 LDL Cholesterol, Calc 64 HDL Cholesterol 65 Medications Medications Current Medications Al Hydroxide/Mg Hydroxide (Magnesium Hydrox/Alum Hydrox 30 Ml Oral.Susp) 30 ml PO Q6H PRN PRN Reason: Heartburn/Nausea Folic Acid (Folic Acid 1 Mg Tablet) 1 mg PO DAILY [facility] Last Admin: 05/20/21 09:49 Dose: 1 mg Documented by: Hydroxyzine HCl (Hydroxyzine Hcl 25 Mg Tablet) 25 mg PO BEDTIME PRN PRN Reason: Anxiety Ibuprofen (Ibuprofen 600 Mg Tablet) 600 mg PO Q8H PRN PRN Reason: Pain, Mild (Pain Scale 1-3) Lisinopril (Lisinopril 20 Mg Tablet) 20 mg PO DAILY [facility]; Protocol Last Admin: 05/20/21 09:49 Dose: 20 mg Documented by: Lorazepam (Lorazepam 1 Mg Tablet) 1 mg PO Q2H PRN PRN Reason: mild to mod alcohol w/drawal Magnesium Hydroxide (Milk Of Magnesia 30 Ml Oral.Susp) 30 ml PO DAILY PRN PRN Reason: Constipation Melatonin (Melatonin 3 Mg Tablet) 9 mg PO BEDTIME PRN PRN Reason: Insomnia Multivitamins/Vitamin C (Multivitamin Tablet) 1 tab PO DAILY [facility] Last Admin: 05/20/21 09:48 Dose: 1 tab Documented by: Multivitamins/Vitamin C (Multivitamin Tablet) 1 tab PO DAILY [facility] Last Admin: 05/20/21 09:56 Dose: 1 tab Documented by: Naltrexone HCl (Naltrexone Hcl 50 Mg Tablet) 25 mg PO DAILY [facility] Last Admin: 05/20/21 09:49 Dose: 25 mg Documented by: Pharmacy Consult (Consult Rx Perform Med Rec) 1 each MISCELLANE ONCE PRN PRN Reason: Consult order Sertraline HCl (Sertraline Hcl 50 Mg Tablet) 50 mg PO DAILY [facility] Last Admin: 05/20/21 09:50 Dose: 50 mg Documented by: Thiamine HCl (Thiamine Hcl 200 Mg/2 Ml Vial) 250 mg IM DAILY [facility] Stop: 05/23/21 23:59 Last Admin: 05/20/21 11:24 Dose: 250 mg Documented by: Thiamine HCl (Thiamine Hcl 100 Mg Tablet) 100 mg PO DAILY [facility] Trazodone HCl (Trazodone Hcl 50 Mg Tablet) 50 mg PO BEDTIME PRN PRN Reason: Insomnia Last Admin: 05/18/21 22:39 Dose: 50 mg Documented by: Allergies Allergies Allergy/AdvReac Type Severity Reaction Status Date / Time No Known Allergies Allergy Unverified 04/16/20 14:43 Assessment & Plan Assessment & Plan (1) MDD (major depressive disorder), recurrent episode, moderate: Status: Acute Code(s): F33.1 - Major depressive disorder, recurrent, moderate (2) Alcohol use disorder, severe, in early remission: Status: Acute Code(s): F10.21 - Alcohol dependence, in remission Assessment and Plan: IMPRESSION: pt is a 61 yo male w/ hx of depression and decades of severe alcohol dependence. Pt presents for MDD with recent SI, having detoxed at home. Pt depressed; will need to r/o NERY. -pt agrees to restarting Zoloft since it was tolerated; he understands he was never at therapeutic dose and agrees to titrate quickly -pt has ataxia that he says started while detoxing; Ataxia present on admission EOMI no nystagmus or confusion/memory loss; -does not meet criteria for Wernikies but also reports he was hardly eating while abusing alcohol; given ataxia will treat with Thiamine with 250mg IM for a 3-5 days (discussed with Dr. Quick who agrees this is appropriate and that pt does not need IV or higher dosing). Patient mood improving; focused on and engaged with treatment; no SI; tolerating medications; gait improving PLAN: cv q15min checks Thiamine 250mg IM for 4 days; then 100mg PO Naltrexone 25mg check Lft's Titrating Zoloft to 75 mg Folic acid 1mg daily MultiVitamin (magnetic tape typewriter operator reviewed risks/side-effects of med current med regimen) pt wants therapy and after care. I spent minutes with the patient and/or on the patient floor today, greater than?50% of which was spent counseling/coordinating care. Reason for contiued inpatient stay Substantial Risk for: med/psych decompensation
[2021-05-20 18:00] VITALS: BP 130/70; PULSE 80; TEMP 36.7
[2021-05-20] MEDS: hydrOXYzine HCL 25 MG TABLET PO (22:45)
[2021-05-20] MEDS: traZODone HCL 50 MG TABLET PO (22:45)
[2021-05-20] MEDS: Melatonin 3 MG TABLET 9 MG PO (22:45)
[2021-05-21 06:00] VITALS: BP 126/65; PULSE 100; RESP 18; TEMP 36.5; O2SAT 98
[2021-05-21 09:24] LABS: Alanine Aminotransferase 62 U/L (0-40); Albumin Level 4.3 g/dL (3.5-5.0); Alkaline Phosphatase 89 U/L (39-117); Aspartate Amino Transferase 70 U/L (5-37); Bilirubin Direct 0.6 mg/dL (0.0-0.5); Bilirubin Total 0.8 mg/dL (0.0-1.0); Total Protein 7.1 g/dL (6.5-8.0)
[2021-05-21] MEDS: Sertraline HCL 25 MG TABLET 75 MG PO (09:29)
[2021-05-21] MEDS: Multivitamin TABLET 1 TAB PO ×2 (09:30→10:00)
[2021-05-21 09:31] VITALS: BP 126/65; PULSE 100
[2021-05-21] MEDS: lisinopriL 20 MG TABLET PO (09:31)
[2021-05-21] MEDS: Naltrexone HCl 50 MG TABLET 25 MG PO (09:31)
--- NOTE | 2021-05-21 09:45 | HO.PSYCHPN ---
Subjective Subjective Date of Service: 05/21/21 Reason For Visit: SI Interim History: pt says he slept well last night; mood is good; still anxious but feels it's under control. He would like Zoloft increased to 100mg so that he can see if he tolerates it on this dose before he leaves; pt is more concerned with being discharged at too low a dose than too high one; commercial real estate underwriter agrees. Pt says he decided not to do IOP as was just in a [facility] program; rather he wants to just get into AA, get a sponsor and work on his sobriety in this way. Mental Status Exam Mental Status Exam Narrative: Pt is alert and oriented; behavior is cooperative; dressed in casual attire with unkempt hair and bay, but with adequate hygiene; mood is described as good and affect congruent, brighter; eye contact appropriate; Speech is normal rate, volume and prosody and not pressured; psychomotor retardation present; thought process is goal directed but also circumstantial. Thought content is on how to handle aftercare; processing regrets; also on tx and pertinent to relevant topics and without any delusional content, paranoid ideations or grandiosity; denies any SI/HI. There is no evidence of perceptual disturbance. Patients insight and judgment are intact. Diagnostics Vital Signs (24Hr): Vital Signs - 24 hr 05/20/21 09:49 05/20/21 18:00 05/21/21 06:00 Temperature 98.0 F 97.7 F Pulse Rate 102 H 80 100 Respiratory Rate 18 Blood Pressure 124/79 130/70 126/65 Pulse Oximetry 98 05/21/21 09:31 Temperature Pulse Rate 100 Respiratory Rate Blood Pressure 126/65 Pulse Oximetry Body Mass Index 27.6 Labs Results: 05/18/21 14:05 05/19/21 07:54 Labs: Laboratory Results - last 48 hr 05/21/21 08:02 Total Bilirubin 0.8 Direct Bilirubin 0.6 H AST 70 H ALT 62 H Alkaline Phosphatase 89 Total Protein 7.1 Albumin 4.3 Medications Medications Current Medications Al Hydroxide/Mg Hydroxide (Magnesium Hydrox/Alum Hydrox 30 Ml Oral.Susp) 30 ml PO Q6H PRN PRN Reason: Heartburn/Nausea Folic Acid (Folic Acid 1 Mg Tablet) 1 mg PO DAILY [facility] Last Admin: 05/20/21 09:49 Dose: 1 mg Documented by: Hydroxyzine HCl (Hydroxyzine Hcl 25 Mg Tablet) 25 mg PO BEDTIME PRN PRN Reason: Anxiety Last Admin: 05/20/21 22:45 Dose: 25 mg Documented by: Ibuprofen (Ibuprofen 600 Mg Tablet) 600 mg PO Q8H PRN PRN Reason: Pain, Mild (Pain Scale 1-3) Lisinopril (Lisinopril 20 Mg Tablet) 20 mg PO DAILY [facility]; Protocol Last Admin: 05/21/21 09:31 Dose: 20 mg Documented by: Lorazepam (Lorazepam 1 Mg Tablet) 1 mg PO Q2H PRN PRN Reason: mild to mod alcohol w/drawal Magnesium Hydroxide (Milk Of Magnesia 30 Ml Oral.Susp) 30 ml PO DAILY PRN PRN Reason: Constipation Melatonin (Melatonin 3 Mg Tablet) 9 mg PO BEDTIME PRN PRN Reason: Insomnia Last Admin: 05/20/21 22:45 Dose: 9 mg Documented by: Multivitamins/Vitamin C (Multivitamin Tablet) 1 tab PO DAILY [facility] Last Admin: 05/21/21 09:30 Dose: 1 tab Documented by: Multivitamins/Vitamin C (Multivitamin Tablet) 1 tab PO DAILY [facility] Last Admin: 05/20/21 09:56 Dose: 1 tab Documented by: Naltrexone HCl (Naltrexone Hcl 50 Mg Tablet) 25 mg PO DAILY [facility] Last Admin: 05/21/21 09:31 Dose: 25 mg Documented by: Pharmacy Consult (Consult Rx Perform Med Rec) 1 each MISCELLANE ONCE PRN PRN Reason: Consult order Sertraline HCl (Sertraline Hcl 25 Mg Tablet) 75 mg PO DAILY [facility] Last Admin: 05/21/21 09:29 Dose: 75 mg Documented by: Thiamine HCl (Thiamine Hcl 200 Mg/2 Ml Vial) 250 mg IM DAILY [facility] Stop: 05/23/21 23:59 Last Admin: 05/20/21 11:24 Dose: 250 mg Documented by: Thiamine HCl (Thiamine Hcl 100 Mg Tablet) 100 mg PO DAILY [facility] Trazodone HCl (Trazodone Hcl 50 Mg Tablet) 50 mg PO BEDTIME PRN PRN Reason: Insomnia Last Admin: 05/20/21 22:45 Dose: 50 mg Documented by: Allergies Allergies Allergy/AdvReac Type Severity Reaction Status Date / Time No Known Allergies Allergy Unverified 04/16/20 14:43 Assessment & Plan Assessment & Plan (1) MDD (major depressive disorder), recurrent episode, moderate: Status: Acute Code(s): F33.1 - Major depressive disorder, recurrent, moderate (2) Alcohol use disorder, severe, in early remission: Status: Acute Code(s): F10.21 - Alcohol dependence, in remission Assessment and Plan: IMPRESSION: pt is a 61 yo male w/ hx of depression and decades of severe alcohol dependence. Pt presents for MDD with recent SI, having detoxed at home. Pt depressed; will need to r/o NERY. -pt agrees to restarting Zoloft since it was tolerated; he understands he was never at therapeutic dose and agrees to titrate quickly -pt has ataxia that he says started while detoxing; Ataxia present on admission EOMI no nystagmus or confusion/memory loss; -does not meet criteria for Wernikies but also reports he was hardly eating while abusing alcohol; given ataxia will treat with Thiamine with 250mg IM for a 3-5 days (discussed with Dr. Quick who agrees this is appropriate and that pt does not need IV or higher dosing). Patient mood improving; focused on and engaged with treatment; no SI; tolerating medications; ataxia resolved remains in good mood; future oriented; PLAN: cv q15min checks Thiamine 250mg IM for 4 days; then 100mg PO Naltrexone 25mg Lft's stable but still elevated Repeat LFT;s on 05/23/21 INCREASED to Zoloft to 100 mg (pt wants to make sure he can tolerate this dose before discharge) Folic acid 1mg daily MultiVitamin (commercial real estate underwriter reviewed risks/side-effects of med current med regimen) pt wants therapy and after care. I spent minutes with the patient and/or on the patient floor today, greater than?50% of which was spent counseling/coordinating care. Reason for contiued inpatient stay Substantial Risk for: other
[2021-05-21] MEDS: Folic Acid 1 MG TABLET PO (10:00)
[2021-05-21] MEDS: Thiamine HCL 200 MG/2 ML VIAL 250 MG IM (10:00)
[2021-05-21] MEDS: Melatonin 3 MG TABLET 9 MG PO (22:43)
[2021-05-21] MEDS: hydrOXYzine HCL 25 MG TABLET PO (22:43)
[2021-05-21] MEDS: traZODone HCL 50 MG TABLET PO (22:43)
[2021-05-22 05:20] VITALS: BP 120/69; PULSE 90; RESP 20; TEMP 36.6; O2SAT 99
[2021-05-22 08:42] VITALS: BP 120/69; PULSE 90
[2021-05-22] MEDS: Sertraline HCL 100 MG TABLET PO (08:42)
[2021-05-22] MEDS: Folic Acid 1 MG TABLET PO (08:42)
[2021-05-22] MEDS: lisinopriL 20 MG TABLET PO (08:42)
[2021-05-22] MEDS: Naltrexone HCl 50 MG TABLET 25 MG PO (08:42)
[2021-05-22] MEDS: Multivitamin TABLET 1 TAB PO ×2 (08:42→10:22)
[2021-05-22] MEDS: Thiamine HCL 200 MG/2 ML VIAL 250 MG IM (08:43)
[2021-05-22 17:59] VITALS: BP 121/76; PULSE 70
--- NOTE | 2021-05-22 18:42 | HO.PSYCHPN ---
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 He has has no interim problems and nursing staff report that he is managing well Medication Compliance: Yes Side effects from medications: No Review of Systems Acute medical concerns: No Medical Review of Systems: unchanged Mental Status Exam Mental Status Exam Level of Consciousness: Drowsy Patient Behavior: Asleep Thought Content: negative for Suicidal Ideation or negative for Homicidal Ideation Diagnostics Vital Signs (24Hr): Vital Signs - 24 hr 05/22/21 05:20 05/22/21 08:42 05/22/21 17:59 Temperature 98 F Pulse Rate 90 90 70 Respiratory Rate 20 Blood Pressure 120/69 120/69 121/76 Pulse Oximetry 99 Body Mass Index 27.6 Labs Results: 05/18/21 14:05 05/19/21 07:54 Labs: Laboratory Results - last 48 hr 05/21/21 08:02 Total Bilirubin 0.8 Direct Bilirubin 0.6 H AST 70 H ALT 62 H Alkaline Phosphatase 89 Total Protein 7.1 Albumin 4.3 Medications Medications Current Medications Al Hydroxide/Mg Hydroxide (Magnesium Hydrox/Alum Hydrox 30 Ml Oral.Susp) 30 ml PO Q6H PRN PRN Reason: Heartburn/Nausea Folic Acid (Folic Acid 1 Mg Tablet) 1 mg PO DAILY [facility] Last Admin: 05/22/21 08:42 Dose: 1 mg Documented by: Hydroxyzine HCl (Hydroxyzine Hcl 25 Mg Tablet) 25 mg PO BEDTIME PRN PRN Reason: Anxiety Last Admin: 05/21/21 22:43 Dose: 25 mg Documented by: Ibuprofen (Ibuprofen 600 Mg Tablet) 600 mg PO Q8H PRN PRN Reason: Pain, Mild (Pain Scale 1-3) Lisinopril (Lisinopril 20 Mg Tablet) 20 mg PO DAILY DAWN; Protocol Last Admin: 05/22/21 08:42 Dose: 20 mg Documented by: Lorazepam (Lorazepam 1 Mg Tablet) 1 mg PO Q2H PRN PRN Reason: mild to mod alcohol w/drawal Magnesium Hydroxide (Milk Of Magnesia 30 Ml Oral.Susp) 30 ml PO DAILY PRN PRN Reason: Constipation Melatonin (Melatonin 3 Mg Tablet) 9 mg PO BEDTIME PRN PRN Reason: Insomnia Last Admin: 05/21/21 22:43 Dose: 9 mg Documented by: Multivitamins/Vitamin C (Multivitamin Tablet) 1 tab PO DAILY [facility] Last Admin: 05/22/21 08:42 Dose: 1 tab Documented by: Multivitamins/Vitamin C (Multivitamin Tablet) 1 tab PO DAILY [facility] Last Admin: 05/22/21 10:22 Dose: 1 tab Documented by: Naltrexone HCl (Naltrexone Hcl 50 Mg Tablet) 25 mg PO DAILY [facility] Last Admin: 05/22/21 08:42 Dose: 25 mg Documented by: Pharmacy Consult (Consult Rx Perform Med Rec) 1 each MISCELLANE ONCE PRN PRN Reason: Consult order Sertraline HCl (Sertraline Hcl 100 Mg Tablet) 100 mg PO DAILY [facility] Last Admin: 05/22/21 08:42 Dose: 100 mg Documented by: Thiamine HCl (Thiamine Hcl 200 Mg/2 Ml Vial) 250 mg IM DAILY [facility] Stop: 05/23/21 23:59 Last Admin: 05/22/21 08:43 Dose: 250 mg Documented by: Thiamine HCl (Thiamine Hcl 100 Mg Tablet) 100 mg PO DAILY [facility] Trazodone HCl (Trazodone Hcl 50 Mg Tablet) 50 mg PO BEDTIME PRN PRN Reason: Insomnia Last Admin: 05/21/21 22:43 Dose: 50 mg Documented by: Allergies Allergies Allergy/AdvReac Type Severity Reaction Status Date / Time No Known Allergies Allergy Unverified 04/16/20 14:43 Assessment & Plan Assessment & Plan (1) MDD (major depressive disorder), recurrent episode, moderate: Status: Acute Code(s): F33.1 - Major depressive disorder, recurrent, moderate Assessment and Plan: No change to current treatment plan (2) Alcohol use disorder, severe, in early remission: Status: Acute Code(s): F10.21 - Alcohol dependence, in remission Assessment and Plan: No change Assessment and Plan: IMPRESSION: pt is a 61 yo male w/ hx of depression and decades of severe alcohol dependence. Pt presents for MDD with recent SI, having detoxed at home. Pt depressed; will need to r/o NERY. -pt agrees to restarting Zoloft since it was tolerated; he understands he was never at therapeutic dose and agrees to titrate quickly -pt has ataxia that he says started while detoxing; Ataxia present on admission EOMI no nystagmus or confusion/memory loss; -does not meet criteria for Wernikies but also reports he was hardly eating while abusing alcohol; given ataxia will treat with Thiamine with 250mg IM for a 3-5 days (discussed with Dr. Quick who agrees this is appropriate and that pt does not need IV or higher dosing). Patient mood improving; focused on and engaged with treatment; no SI; tolerating medications; ataxia resolved remains in good mood; future oriented; PLAN: cv q15min checks Thiamine 250mg IM for 4 days; then 100mg PO Naltrexone 25mg Lft's stable but still elevated Repeat LFT;s on 05/23/21 INCREASED to Zoloft to 100 mg (pt wants to make sure he can tolerate this dose before discharge) Folic acid 1mg daily MultiVitamin (travel writer reviewed risks/side-effects of med current med regimen) pt wants therapy and after care. I spent ___10___ minutes with the patient and/or on the patient floor today, greater than?50% of which was spent counseling/coordinating care. Reason for contiued inpatient stay Substantial Risk for: rapid decompensation
[2021-05-22] MEDS: Melatonin 3 MG TABLET 9 MG PO (22:28)
[2021-05-22] MEDS: traZODone HCL 50 MG TABLET PO (22:28)
[2021-05-22] MEDS: hydrOXYzine HCL 25 MG TABLET PO (22:28)
[2021-05-23 06:00] VITALS: BP 139/68; PULSE 82; RESP 16; TEMP 36.4; O2SAT 100
[2021-05-23 07:05] LABS: Alanine Aminotransferase 75 U/L (0-40); Albumin Level 4.1 g/dL (3.5-5.0); Alkaline Phosphatase 89 U/L (39-117); Aspartate Amino Transferase 62 U/L (5-37); Bilirubin Direct 0.4 mg/dL (0.0-0.5); Bilirubin Total 0.8 mg/dL (0.0-1.0); Total Protein 6.8 g/dL (6.5-8.0)
[2021-05-23 09:05] VITALS: BP 133/83; PULSE 86
[2021-05-23] MEDS: Folic Acid 1 MG TABLET PO (09:05)
[2021-05-23] MEDS: Sertraline HCL 100 MG TABLET PO (09:05)
[2021-05-23] MEDS: Naltrexone HCl 50 MG TABLET 25 MG PO (09:05)
[2021-05-23] MEDS: lisinopriL 20 MG TABLET PO (09:05)
[2021-05-23] MEDS: Multivitamin TABLET 1 TAB PO ×2 (09:05)
[2021-05-23] MEDS: Thiamine HCL 200 MG/2 ML VIAL 250 MG IM (09:07)
[2021-05-23 18:00] VITALS: BP 150/71; PULSE 89; TEMP 36.2; O2SAT 99
--- NOTE | 2021-05-23 18:43 | HO.PSYCHPN ---
Subjective Subjective Date of Service: 05/23/21 Reason For Visit: SI Subjective Notes: Conditional Voluntary Interim History: Alonzo was up and about today. He reports that he is feeling more hopeful. He has tolerated his medications without difficulty. He is looking forward to [place] tomorrow. Mental Status Exam Mental Status Exam Patient Appearance: Well Grooomed Patient Orientation: Person, Place, Time and Situation Level of Consciousness: Awake Patient Behavior: Appropriate Mood Description: Calm Affect Description: Calm Ability to Follow Directions: Excellent Speech Pattern: Clear Memory Description: Intact Hallucinations: None Delusions: Not Present Thought Content: negative for Suicidal Ideation or negative for Homicidal Ideation Judgement: Good Diagnostics Vital Signs (24Hr): Vital Signs - 24 hr 05/23/21 06:00 05/23/21 09:05 Temperature 97.6 F Pulse Rate 82 86 Respiratory Rate 16 Blood Pressure 139/68 133/83 Pulse Oximetry 100 Body Mass Index 27.6 Labs Results: 05/18/21 14:05 05/19/21 07:54 Labs: Laboratory Results - last 48 hr 05/23/21 06:38 Total Bilirubin 0.8 Direct Bilirubin 0.4 AST 62 H ALT 75 H Alkaline Phosphatase 89 Total Protein 6.8 Albumin 4.1 Medications Medications Current Medications Al Hydroxide/Mg Hydroxide (Magnesium Hydrox/Alum Hydrox 30 Ml Oral.Susp) 30 ml PO Q6H PRN PRN Reason: Heartburn/Nausea Folic Acid (Folic Acid 1 Mg Tablet) 1 mg PO DAILY [facility] Last Admin: 05/23/21 09:05 Dose: 1 mg Documented by: Hydroxyzine HCl (Hydroxyzine Hcl 25 Mg Tablet) 25 mg PO BEDTIME PRN PRN Reason: Anxiety Last Admin: 05/22/21 22:28 Dose: 25 mg Documented by: Ibuprofen (Ibuprofen 600 Mg Tablet) 600 mg PO Q8H PRN PRN Reason: Pain, Mild (Pain Scale 1-3) Lisinopril (Lisinopril 20 Mg Tablet) 20 mg PO DAILY [facility]; Protocol Last Admin: 05/23/21 09:05 Dose: 20 mg Documented by: Lorazepam (Lorazepam 1 Mg Tablet) 1 mg PO Q2H PRN PRN Reason: mild to mod alcohol w/drawal Magnesium Hydroxide (Milk Of Magnesia 30 Ml Oral.Susp) 30 ml PO DAILY PRN PRN Reason: Constipation Melatonin (Melatonin 3 Mg Tablet) 9 mg PO BEDTIME PRN PRN Reason: Insomnia Last Admin: 05/22/21 22:28 Dose: 9 mg Documented by: Multivitamins/Vitamin C (Multivitamin Tablet) 1 tab PO DAILY [facility] Last Admin: 05/23/21 09:05 Dose: 1 tab Documented by: Multivitamins/Vitamin C (Multivitamin Tablet) 1 tab PO DAILY [facility] Last Admin: 05/23/21 09:05 Dose: 1 tab Documented by: Naltrexone HCl (Naltrexone Hcl 50 Mg Tablet) 25 mg PO DAILY [facility] Last Admin: 05/23/21 09:05 Dose: 25 mg Documented by: Pharmacy Consult (Consult Rx Perform Med Rec) 1 each MISCELLANE ONCE PRN PRN Reason: Consult order Sertraline HCl (Sertraline Hcl 100 Mg Tablet) 100 mg PO DAILY [facility] Last Admin: 05/23/21 09:05 Dose: 100 mg Documented by: Thiamine HCl (Thiamine Hcl 200 Mg/2 Ml Vial) 250 mg IM DAILY [facility] Stop: 05/23/21 23:59 Last Admin: 05/23/21 09:07 Dose: 250 mg Documented by: Thiamine HCl (Thiamine Hcl 100 Mg Tablet) 100 mg PO DAILY [facility] Trazodone HCl (Trazodone Hcl 50 Mg Tablet) 50 mg PO BEDTIME PRN PRN Reason: Insomnia Last Admin: 05/22/21 22:28 Dose: 50 mg Documented by: Allergies Allergies Allergy/AdvReac Type Severity Reaction Status Date / Time No Known Allergies Allergy Unverified 04/16/20 14:43 Assessment & Plan Assessment & Plan (1) MDD (major depressive disorder), recurrent episode, moderate: Status: Acute Code(s): F33.1 - Major depressive disorder, recurrent, moderate Assessment and Plan: No change to current treatment plan (2) Alcohol use disorder, severe, in early remission: Status: Acute Code(s): F10.21 - Alcohol dependence, in remission Assessment and Plan: No change Assessment and Plan: IMPRESSION: pt is a 61 yo male w/ hx of depression and decades of severe alcohol dependence. Pt presents for MDD with recent SI, having detoxed at home. Pt depressed; will need to r/o NERY. -pt agrees to restarting Zoloft since it was tolerated; he understands he was never at therapeutic dose and agrees to titrate quickly -pt has ataxia that he says started while detoxing; Ataxia present on admission EOMI no nystagmus or confusion/memory loss; -does not meet criteria for Wernikies but also reports he was hardly eating while abusing alcohol; given ataxia will treat with Thiamine with 250mg IM for a 3-5 days (discussed with Dr. Quick who agrees this is appropriate and that pt does not need IV or higher dosing). 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 05/23/21: No changes to plan Stable for DC tomorrow I spent minutes with the patient and/or on the patient floor today, greater than?50% of which was spent counseling/coordinating care. Patient educated on: diagnosis and medication risk/benefits Informed Consent: understands Reason for contiued inpatient stay Substantial Risk for: rapid decompensation
[2021-05-23] MEDS: hydrOXYzine HCL 25 MG TABLET PO (22:25)
[2021-05-23] MEDS: Melatonin 3 MG TABLET 9 MG PO (22:26)
[2021-05-23] MEDS: traZODone HCL 50 MG TABLET PO (22:26)
[2021-05-24] MEDS: traZODone HCL 50 MG TABLET PO (00:14)
[2021-05-24 06:00] VITALS: BP 116/68; PULSE 98; TEMP 36; O2SAT 99
[2021-05-24] MEDS: Naltrexone HCl 50 MG TABLET 25 MG PO (08:25)
[2021-05-24 08:26] VITALS: BP 116/68; PULSE 98
[2021-05-24] MEDS: Multivitamin TABLET 1 TAB PO ×2 (08:26)
[2021-05-24] MEDS: Folic Acid 1 MG TABLET PO (08:26)
[2021-05-24] MEDS: lisinopriL 20 MG TABLET PO (08:26)
[2021-05-24] MEDS: Sertraline HCL 100 MG TABLET PO (08:46)
[2021-05-24] MEDS: Thiamine HCL 100 MG TABLET PO (08:46)
--- NOTE | 2021-05-25 10:57 | PM.PSYDC ---
DS: Providers Provider Date of Service: 05/24/21 Date of admission: 05/18/21 21:19 Date of discharge: 05/24/21 Primary care physician: Teodoro San MD, DO Attending physician on admission: Luis Fair Consults: 05/18/21 13:23 Consult to Crisis Stat Reason for consultation: SI Has provider been notified: Yes Attending physician on discharge: Rama Coughlin DS: Diagnosis Discharge Diagnosis (1) MDD (major depressive disorder), recurrent episode, moderate: Status: Chronic (2) Alcohol use disorder, severe, in early remission: Status: Chronic DS: Medications Discharge Medications Home Medications: Home Medications Medication Instructions Recorded Confirmed lisinopril 20 mg tablet 1 tab PO DAILY 05/18/21 05/18/21 melatonin 10 mg tablet 10 mg PO BEDTIME PRN 05/18/21 05/18/21 multivitamin 1 tab PO DAILY 05/18/21 05/18/21 Previous Rx's Medication Instructions Recorded folic acid 1 mg tablet 1 mg PO DAILY #30 tab 05/24/21 hydroxyzine HCl 25 mg tablet 25 mg PO BEDTIME PRN #5 tab 05/24/21 naltrexone 50 mg tablet 25 mg PO DAILY #15 tab 05/24/21 sertraline 100 mg tablet 100 mg PO DAILY #30 tab 05/24/21 thiamine mononitrate (vit B1) 100 100 mg PO DAILY #30 tab 05/24/21 mg tablet trazodone 50 mg tablet 50 mg PO BEDTIME PRN #30 tab 05/24/21 Mental Status Exam Mental Status Exam Narrative: Patient Appearance:?Well Grooomed Patient Orientation:?Person, Place, Time and Situation Level of Consciousness:?Awake Patient Behavior:?Appropriate Mood Description:?Calm Affect Description:?Calm Ability to Follow Directions:?Excellent Speech Pattern:?Clear Memory Description:?Intact Hallucinations:?None Delusions:?Not Present Thought Content:?negative for Suicidal Ideation or negative for Homicidal Ideation Judgement:?Good Data Data Completed and Pending Completed studies during hospitalization [Text1]: 05/18/21 05/18/21 05/18/21 13:33 14:05 14:05 WBC 7.0 RBC 4.11 L Hgb 13.0 L Hct 36.9 L MCV 89.8 MCH 31.6 MCHC 35.2 RDW 13.2 Plt Count 151 L MPV 10.0 Immature Gran % (Auto) 0.6 H Neut % (Auto) 57.6 Lymph % (Auto) 24.2 Lucas % (Auto) 15.4 H Eos % (Auto) 1.8 Baso % (Auto) 0.4 Lymph # (Auto) 1.7 Lucas # (Auto) 1.1 Eos # (Auto) 0.1 Baso # (Auto) 0.0 Abs Immat Gran (auto) 0.04 H Absolute Neuts (auto) 4.1 Absolute Nucleated RBC 0.000 Nucleated RBC % (auto) 0.0 Smear Tech's Comments Not Reportable Sodium 137 Potassium 3.4 Chloride 98 Carbon Dioxide 27 Anion Gap 15 BUN 12 Creatinine 0.94 Estim Creat Clear Calc 90.3 Estimated GFR > 60 Random Glucose 152 H Fasting Glucose Estimat Average Glucose Hemoglobin A1c % Calcium 9.4 Magnesium 1.5 L Total Bilirubin 1.2 H Direct Bilirubin 0.7 H AST 55 H ALT 37 Alkaline Phosphatase 85 Total Protein 7.0 Albumin 4.2 Triglycerides Cholesterol LDL Cholesterol, Calc HDL Cholesterol Lipase 128 H Urine Opiates Screen Not Detected Urine Fentanyl Screen Not Detected Ur Barbiturates Screen Not Detected Ur Phencyclidine Scrn Not Detected Ur Amphetamines Screen Not Detected U Benzodiazepines Scrn Not Detected Urine Cocaine Screen Not Detected U Marijuana (THC) Screen POSITIVE H Ethyl Alcohol COVID-19 ([facility]) COVID-19 Clin Com 05/18/21 05/18/21 05/19/21 14:05 14:05 07:54 WBC RBC Hgb Hct MCV MCH MCHC RDW Plt Count MPV Immature Gran % (Auto) Neut % (Auto) Lymph % (Auto) Lucas % (Auto) Eos % (Auto) Baso % (Auto) Lymph # (Auto) Lucas # (Auto) Eos # (Auto) Baso # (Auto) Abs Immat Gran (auto) Absolute Neuts (auto) Absolute Nucleated RBC Nucleated RBC % (auto) Smear Tech's Comments Sodium 138 Potassium 3.5 Chloride 99 Carbon Dioxide 27 Anion Gap 16 BUN 11 Creatinine 0.87 Estim Creat Clear Calc 97.5 Estimated GFR > 60 Random Glucose Fasting Glucose 91 Estimat Average Glucose Hemoglobin A1c % Calcium 9.7 Magnesium Total Bilirubin 1.4 H Direct Bilirubin AST 83 H ALT 58 H Alkaline Phosphatase 85 Total Protein 7.5 Albumin 4.5 Triglycerides 107 Cholesterol 150 LDL Cholesterol, Calc 64 HDL Cholesterol 65 Lipase Urine Opiates Screen Urine Fentanyl Screen Ur Barbiturates Screen Ur Phencyclidine Scrn Ur Amphetamines Screen U Benzodiazepines Scrn Urine Cocaine Screen U Marijuana (THC) Screen Ethyl Alcohol < 10 COVID-19 ([facility]) Negative COVID-19 Clin Com See Note 05/19/21 05/21/21 05/23/21 07:54 08:02 06:38 WBC RBC Hgb Hct MCV MCH MCHC RDW Plt Count MPV Immature Gran % (Auto) Neut % (Auto) Lymph % (Auto) Lucas % (Auto) Eos % (Auto) Baso % (Auto) Lymph # (Auto) Lucas # (Auto) Eos # (Auto) Baso # (Auto) Abs Immat Gran (auto) Absolute Neuts (auto) Absolute Nucleated RBC Nucleated RBC % (auto) Smear Tech's Comments Sodium Potassium Chloride Carbon Dioxide Anion Gap BUN Creatinine Estim Creat Clear Calc Estimated GFR Random Glucose Fasting Glucose Estimat Average Glucose 94 Hemoglobin A1c % 4.9 Calcium Magnesium Total Bilirubin 0.8 0.8 Direct Bilirubin 0.6 H 0.4 AST 70 H 62 H ALT 62 H 75 H Alkaline Phosphatase 89 89 Total Protein 7.1 6.8 Albumin 4.3 4.1 Triglycerides Cholesterol LDL Cholesterol, Calc HDL Cholesterol Lipase Urine Opiates Screen Urine Fentanyl Screen Ur Barbiturates Screen Ur Phencyclidine Scrn Ur Amphetamines Screen U Benzodiazepines Scrn Urine Cocaine Screen U Marijuana (THC) Screen Ethyl Alcohol COVID-19 ([facility]) COVID-19 Clin Com DS: Summary Hospital Course Hospital Course: pt is a 61 yo male w/ hx of depression and decades of severe alcohol dependence. Pt presents for MDD with recent SI, having detoxed at home. Pt depressed, anxious on admission, but SI had resolved. -pt agrees to restarting Zoloft since it was tolerated in the past; he understands he was never at therapeutic dose and agrees to titrate quickly -pt has ataxia that he says started while detoxing, which was present on admission but resolved -pt treated with Thiamine with 250mg IM for 5 days; he did not meet criteria for Wernikies but treated since he reports he hardly eat while abusing alcohol (discussed with Dr. Quick who agrees this is appropriate and that pt does not need IV or higher dosing). -patient also started on naltrexone for help with alcohol cravings; LFTs within normal limits -depression quickly abated and pt was in good mood; anxiety also well treated. SI also remained fully resolved. And patient remained in a good mood and was future oriented looking forward to treatment as an outpatient. He was engaged in treatment while on the unit, attending groups, appropriate with staff and peers and demonstrating good impulse and behavioral control. He was not in imminent risk for risk of harm to self or others and appropriate for discharge. He returns to his supportive family. Status at Discharge Functional status at discharge: independent ambulation Overall status at discharge: patient is back to baseline Time Spent with Patient Time attestation: Total time spent providing and/or coordinating discharge services: Discharge Plan Discharge Patient Disposition: Home, Self-Care Discharge Diagnosis: MDD, recurrent, moderate, in full remission Alcohol Use Disorder Referrals: Yashira Rinaldi (therapy) [Other] - 05/25/21 11:00 am (This appointment is in-office at the above location) Anushka Mckee (psychiatry) [Other] - 06/23/21 9:30 am (This appointment is in-office) Anushka Mckee (psychiatry) [Other] - 07/21/21 9:40 am (This is a telehealth appointment) [facility] [Other] - 1 Week (Please contact the above number to self-refer to the [facility] if you are interested) Teodoro San MD, DO [Primary Care Provider] - 06/11/21 11:00 am (VIA PHONE) Discharge Medications: New trazodone 50 mg Tablet 50 mg PO BEDTIME PRN (Reason: Insomnia) Qty: 30 RF: 0 naltrexone 50 mg Tablet 25 mg PO DAILY Qty: 15 RF: 0 sertraline 100 mg Tablet 100 mg PO DAILY Qty: 30 RF: 0 folic acid 1 mg Tablet 1 mg PO DAILY Qty: 30 RF: 0 hydroxyzine HCl 25 mg Tablet 25 mg PO BEDTIME PRN (Reason: Anxiety) Qty: 5 RF: 0 thiamine mononitrate (vit B1) 100 mg Tablet 100 mg PO DAILY Qty: 30 RF: 0 Continued multivitamin Tablet 1 tab PO DAILY RF: 0 lisinopril 20 mg tablet 1 tab PO DAILY RF: 0 melatonin 10 mg Tablet 10 mg PO BEDTIME PRN (Reason: Insomnia) RF: 0 Discontinued hydroxyzine pamoate 50 mg capsule 250 mg PO BEDTIME RF: 0 Discharge Orders: Discharge Order (Routine); Ordered 05/24/21 Ordered By: Rama Coughlin Diet: regular diet Activity on Discharge: As tolerated Stand Alone Forms: Patient Portal Discharge page, Community Support Care Plan Goals: 1. Maintain mood 2. No SI/HI 3. Improved sleep/appetite 4. Continue working towards recovery Health Concerns: follow up with PCP Plan of Treatment: 1. Take medications as prescribed. 2. Go to nearest ED or call 911 in even of emergency Assessment: Pt brighter, hopeful, future oriented, No SI/HI. No signs of aggression towards self or others. Discharge Date/Time: 05/24/21 14:25
== END 2021-05-24 14:25 | disposition home or self-care (01) | DRG 885 ==
LOC: HO.ED 21:10 → HO.PM5 21:41
PROVIDERS: Admitting Provider Psychiatry & Neurology Psychiatry; Emergency Provider Emergency Medicine; PCP Internal Medicine; Visit Provider Psychiatry & Neurology Psychiatry
DX: F33.1 Major depressive disorder, recurrent, moderate (principal); R45.851 Suicidal ideations; F10.20 Alcohol dependence, uncomplicated; E83.42 Hypomagnesemia; Z20.822 Contact with and (suspected) exposure to COVID-19; Z87.891 Personal history of nicotine dependence; Z79.899 Other long term (current) drug therapy
CPT/HCPCS: 36415; 80048; 80053; 80061; 80076; 80307; 82077; 83036; 83690; 83735; 85025; 87635; 93005; 99285; J3411